=== PATIENT | female | born 1965 | race Caucasian/White ===

== ENCOUNTER 2016-12-16 15:47 | Emergency (ER) | payer MEDICAID ==
[~2016-12-16] VITALS: Ht 170.2 cm; Wt 104.3 kg
[~2016-12-16 15:47] MED LIST: CIPRO 500MG TA500 MG PO; CYMBALTA60 MG PO; INSULIN RE100 UNITS/ SC; LAMICTAL 100 M100 MG PO; LANTUS SOLOS100 U/ML SC; NEURONTIN 300M300 MG PO; PRAVASTATIN 20M20 MG PO; SIMVASTATIN40 MG PO; TESSALON PERLE100 MG PO; VALSARTAN160 MG PO
[2016-12-16] MEDS ORDERED: AMOXICILLIN 50500 MG PO (16:16)
[2016-12-16] MEDS ORDERED: FLONASE 50 MCG16 GM (16:16)
--- NOTE | 2016-12-16 16:16 | Urgent Treatment Center Report ---
History of Present Issue Date/Time Seen by Provider 12/16/16 1600 Visit Reason Pt arrived:Walked Presenting Problem:PT STATES FEELING SOMETHING MOVING IN HER RIGHT EAR SINCE LAST NIGHT. STATES PUTTING DROP OF ALCOHOL IN HER EAR TO TRY TO GET IT TO COME OUT. Location if Accident: Onset of symptoms date/time:12/15/16/ or onset unknown for:MEDICAL HX UNKNOWN Have you (or family members/close friends) recently traveled outside the [place]? N If Yes, where/when: Have you had exposure to infectious disease within the past month? TB? Other? Specify: Patient states that she feels like there is something moving in her ear since last night. States that she put some drops of alcohol in it last night trying to get it to come out. States that she felt something that felt like it was running earlier today so she got worried and came in to get checked ALLERGIES Coded Allergies: latex (Intermediate, I-HIVES 05/24/16) sulfamethoxazole (From BACTRIM) (Intermediate, I-ITCHING 05/24/16) trimethoprim (From BACTRIM) (Intermediate, I-ITCHING 05/24/16) lisinopril (S-DIFF. BREATHING 05/24/16) Home Medications Reported Medications Gabapentin (Neurontin 300MG) 600 MG PO QID Valsartan (Valsartan 160MG) 160 MG PO DAILY DULOXETINE HCL (Cymbalta 60MG) 60 MG PO DAILY Insulin Glargine, Recombinan (Lantus Solostar 3ML) 80 UNITS SC DAILY Simvastatin (Simvastatin 40MG Tab) 40 MG PO QHS Lamotrigine (Lamictal 100Mg) 75 MG PO BID History Medical History General CAD? No Angina: No [place]: No Hypertension? Yes Hyperlipidemia? Yes CHF? No DVT? No PE? No COPD? No Asthma? No Anemia? No GERD? Yes Gastric ulcers? No GI Bleed? No Hernia? No Thyroid Problems? No Hypothyroidism? No CVA? No Seizures? No Diabetes? Yes Insulin Dependent: Yes Insulin Pump: No Home FSBS? Yes Renal Insuffiency? No UTI? No Stones? No BPH? No GB Disease: No Nephritic Syndrome? No Asplenia? No Hepatitis? No Sickle Cell Disease? No Arthritis? Yes Migraines? No Cataracts? No Glaucoma? No MRSA? No HIV? No TB? No Anxiety? No Depression? Yes Cancer? No More? No Immunization HX DT/Tetanus Has Never Had Pneumonia Never Had Surgical Hx Previous Surgery?Y MASS FROM RIGHT BREAST HYSTERECTOMY RIGHT ROTATOR CUFF RIGHT TRIGGER FINGER HEART STENT X 1 Family History Family HX Diabetes Yes CAD No Hypertension Yes Hyperlipidemia Yes Cancer No TB No Social History Smoking Hx Smoker: Current Every Day Smoker Tobacco: Yes Type Cigarettes Packs/day 1 1/2 - 2 Packs Alcohol Alcohol: Yes Review of Systems All Other Systems Reviewed and Negative ENT ear pain. Comment Patient feels like there is something moving around in her right ear Physical Exam Vital Signs Vital Signs Date Time Temp Pulse Resp B/P Pulse O2 O2 Flow FiO2 Ox Delivery Rate 12/16 1557 98.2 95 18 153/85 99 General Appearance normal appearance, WD/WN, no apparent distress, mild distress Ear, Nose, Throat Right ear checked multiple times, no bug or forgein body observed, however, ear red, TM buldging effusion noted Respiratory Status Yes: trachea midline, chest symmetrical, non tender chest. No: respiratory distress. 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 No Progress [facility] Progress Notes Date 12/16/16 Time 1622 Comment Observed right ear multiple times at different angle, ear clear of wax no insect or foreign body seen Departure Departure Time of Disposition 1608 Disposition DC Home or Self Care(routine) Clinical Impression Primary Impression: Acute otitis media with effusion Condition STABLE Referrals Darrell MACE,Colby Monsalve (Family) Patient Instructions DI for Otitis Media (Middle Ear Infection)-Child, Ear Infections (Middle Ear) (Alternative Therapy) Additional Instructions Take medication as prescribed DO NOT stick anything back into the ear such as a Qtip or hood pin Over the counter medications such as Tylenol or Motrin for pain Follow up with family doctor if no improvement of symptoms 2-3 days or worsening of symptoms Return to the [facility] if needed Discharge Counseling Counseled pt/family regarding diagnosis, medications/RX, home care, follow up needs Prescriptions Current Visit Scripts Amoxicillin Trihydrate (Amoxicillin 500MG) 500 MG PO Q12H #20 CAP Fluticasone Propionate (Flonase 50 Mcg Nasal [place]) 2 SPRAY NA DAILY #1 BOT at 8169
--- NOTE | 2016-12-16 16:16 | Urgent Treatment Center Report ---
History of Present Issue Date/Time Seen by Provider 12/16/16 1600 Visit Reason Pt arrived:Walked Presenting Problem:PT STATES FEELING SOMETHING MOVING IN HER RIGHT EAR SINCE LAST NIGHT. STATES PUTTING DROP OF ALCOHOL IN HER EAR TO TRY TO GET IT TO COME OUT. Location if Accident: Onset of symptoms date/time:12/15/16/ or onset unknown for:MEDICAL HX UNKNOWN Have you (or family members/close friends) recently traveled outside the [place]? N If Yes, where/when: Have you had exposure to infectious disease within the past month? TB? Other? Specify: Patient states that she feels like there is something moving in her ear since last night. States that she put some drops of alcohol in it last night trying to get it to come out. States that she felt something that felt like it was running earlier today so she got worried and came in to get checked ALLERGIES Coded Allergies: latex (Intermediate, I-HIVES 05/24/16) sulfamethoxazole (From BACTRIM) (Intermediate, I-ITCHING 05/24/16) trimethoprim (From BACTRIM) (Intermediate, I-ITCHING 05/24/16) lisinopril (S-DIFF. BREATHING 05/24/16) Home Medications Reported Medications Gabapentin (Neurontin 300MG) 600 MG PO QID Valsartan (Valsartan 160MG) 160 MG PO DAILY DULOXETINE HCL (Cymbalta 60MG) 60 MG PO DAILY Insulin Glargine, Recombinan (Lantus Solostar 3ML) 80 UNITS SC DAILY Simvastatin (Simvastatin 40MG Tab) 40 MG PO QHS Lamotrigine (Lamictal 100Mg) 75 MG PO BID History Medical History General CAD? No Angina: No [place]: No Hypertension? Yes Hyperlipidemia? Yes CHF? No DVT? No PE? No COPD? No Asthma? No Anemia? No GERD? Yes Gastric ulcers? No GI Bleed? No Hernia? No Thyroid Problems? No Hypothyroidism? No CVA? No Seizures? No Diabetes? Yes Insulin Dependent: Yes Insulin Pump: No Home FSBS? Yes Renal Insuffiency? No UTI? No Stones? No BPH? No GB Disease: No Nephritic Syndrome? No Asplenia? No Hepatitis? No Sickle Cell Disease? No Arthritis? Yes Migraines? No Cataracts? No Glaucoma? No MRSA? No HIV? No TB? No Anxiety? No Depression? Yes Cancer? No More? No Immunization HX DT/Tetanus Has Never Had Pneumonia Never Had Surgical Hx Previous Surgery?Y MASS FROM RIGHT BREAST HYSTERECTOMY RIGHT ROTATOR CUFF RIGHT TRIGGER FINGER HEART STENT X 1 Family History Family HX Diabetes Yes CAD No Hypertension Yes Hyperlipidemia Yes Cancer No TB No Social History Smoking Hx Smoker: Current Every Day Smoker Tobacco: Yes Type Cigarettes Packs/day 1 1/2 - 2 Packs Alcohol Alcohol: Yes Review of Systems All Other Systems Reviewed and Negative ENT ear pain. Comment Patient feels like there is something moving around in her right ear Physical Exam Vital Signs Vital Signs Date Time Temp Pulse Resp B/P Pulse O2 O2 Flow FiO2 Ox Delivery Rate 12/16 1557 98.2 95 18 153/85 99 General Appearance normal appearance, WD/WN, no apparent distress, mild distress Ear, Nose, Throat Right ear checked multiple times, no bug or forgein body observed, however, ear red, TM buldging effusion noted Respiratory Status Yes: trachea midline, chest symmetrical, non tender chest. No: respiratory distress. 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 No Progress [facility] Progress Notes Date 12/16/16 Time 1622 Comment Observed right ear multiple times at different angle, ear clear of wax no insect or foreign body seen Departure Departure Time of Disposition 1608 Disposition DC Home or Self Care(routine) Clinical Impression Primary Impression: Acute otitis media with effusion Condition STABLE Referrals Darrell MACE,Colby Monsalve (Family) Patient Instructions DI for Otitis Media (Middle Ear Infection)-Child, Ear Infections (Middle Ear) (Alternative Therapy) Additional Instructions Take medication as prescribed DO NOT stick anything back into the ear such as a Qtip or hood pin Over the counter medications such as Tylenol or Motrin for pain Follow up with family doctor if no improvement of symptoms 2-3 days or worsening of symptoms Return to the [facility] if needed Discharge Counseling Counseled pt/family regarding diagnosis, medications/RX, home care, follow up needs Prescriptions Current Visit Scripts Amoxicillin Trihydrate (Amoxicillin 500MG) 500 MG PO Q12H #20 CAP Fluticasone Propionate (Flonase 50 Mcg Nasal [place]) 2 SPRAY NA DAILY #1 BOT at 1794
[2016-12-16 16:18] VITALS: BP 153/85
== END 2016-12-16 16:19 | disposition home or self-care (01) ==
LOC: UTC 15:47
DX: H66.91 Otitis media, unspecified, right ear (principal)

== ENCOUNTER → 2017-06-27 | Outpatient (CLI) | payer MEDICAID ==
[~2017-06-27] MED LIST changes: +AMITRIPTYLINE 225 MG PO; +AMOXICILLIN 50500 MG PO; +AUGMENTIN 875-1 EACH PO; +BENTYL GENERIC10 MG PO; +CARVEDILOL3.125 M1 PO; +CLOPIDOGREL75 M2 PO; +FLONASE 50 MCG16 GM; +INVOKANA100 MG PO; +LITHIUM CARB 1150 MG PO; +LYRICA 100 MG100 MG PO; +LYRICA150 M1 PO; +MEDROL 4MG. DOSE4 MG PO
[2017-06-27 18:40] LABS: HEMOGLOBIN 15.4 g/dL (12.2-16.2); LYMPH # 3.4 K/mm3 (0.7-4.5); LYMPH % 28.7 % (10-50.0)
[2017-06-27 18:48] LABS: BUN 7 mg/dL (7-18)
[2017-06-27 18:54] LABS: GFR (ESTIMATED) 76 ML/MIN (59-)
[2017-06-29 08:37] LABS: Vitamin D, 25-Hydroxy 17.3 ng/mL (30.0-100.0)
[2017-06-29 09:39] LABS: Folate (Folic Acid) 7.9 ng/mL (>3.0)
== END ==
LOC: LAB 17:50
PROVIDERS: Physician Assistant
DX: F32.9 Major depressive disorder, single episode, unspecified (principal); E11.9 Type 2 diabetes mellitus without complications